=== PATIENT | female | born 1985 | race Caucasian/White ===

== ENCOUNTER 2018-05-04 18:04 | Emergency (ER) | payer OTHER ==
[2018-05-04 18:08] VITALS: BP 128/73; PULSE 94; TEMP 99.4; BMI 22.6
--- NOTE | 2018-05-04 18:26 | PDOC ---
History of Present Illness - General Chief Complaint: Respiratory Stated Complaint: CHEST PAIN Time Seen by Provider: 05/04/18 18:09 History Source: Patient Exam Limitations: No Limitations - History of Present Illness Initial Comments: 05/04/18 18:22 HISTORY OF PRESENT ILLNESS: 33-year-old woman past medical history of hypothyroidism who presents emergency Department with 1 week of fevers, dry cough and pleuritic chest pain. Patient states she's been feeling feverish for the past week but has not checked her temperature. Patient denies taking any [id number] antipyretic medication. Patient denies any shortness of breath or audible wheezing over this time. Patient reports she is beginning to experience a mildly sore throat which just started over the past 2 days. She denies any shortness of breath, dizziness, headaches, abdominal pain, nausea, vomiting. No recent travel or sick contacts. PAST MEDICAL HISTORY: hypothyroidism SURGICAL HISTORY: Denies ALLERGIES: No known drug allergies REVIEW OF SYSTEMS General/Constitutional: subjective fever. No chills. Denies weakness, weight change. HEENT: Denies change in vision. Denies ear pain or discharge. Denies sore throat. Cardiovascular: Denies chest pain or shortness of breath. Respiratory: dry nonproductive cough. No wheezing, or hemoptysis. Gastrointestinal: Denies nausea, vomiting, diarrhea or constipation. Denies rectal bleeding. Genitourinary: Denies dysuria, frequency, or change in urination. Musculoskeletal: Denies joint or muscle swelling or pain. Denies neck or back pain. Skin and breasts: Denies rash or easy bruising. Neurologic: Denies headache, vertigo, loss of consciousness, or loss of sensation. Psychiatric: Denies depression or anxiety. Endocrine: Denies increased thirst. Denies abnormal weight change. Hematologic/Lymphatic: Denies anemia, easy bleeding, or history of blood clots. Allergic/Immunologic: Denies hives or skin allergy. Denies latex allergy. PHYSICAL EXAM General Appearance: Well-appearing, appropriately dressed. No apparent distress , no intoxication. HEENT: EOMI, PERRLA, normal ENT inspection, normal voice, TMs normal, pharynx normal. No conjunctival pallor. No photophobia, scleral icterus. Neck: Supple. Trachea midline. No tenderness, rigidity, carotid bruit, stridor , lymphadenopathy, or thyromegaly. Respiratory/Chest: Lungs CTAB. No shortness of breath, chest tenderness, respiratory distress, accessory muscle use. No crackles, rales, rhonchi, stridor , wheezing, dullness Cardiovascular: RRR. S1, S2. No JVD, murmur, bradycardia, tachycardia. Vascular Pulses: Dorsalis-Pedis (R): 2+, Dorsalis-Pedis (L): 2+ Gastrointestinal/Abdominal: Normal bowel sounds. Abdomen soft, non-distended. No tenderness or rebound tenderness. No organomegaly, pulsatile mass, guarding , hernia, hepatomegaly, splenomegaly. Lymphatic: No adenopathy, tenderness. Musculoskeletal/Extremities: Normal inspection. FROM of all extremities, normal capillary refill. Pelvis Stable. No CVA tenderness. No tenderness to extremities, pedal edema, swelling, erythema or deformity. Integumentary: Appropriate color, dry, warm. No cyanosis, erythema, jaundice or rash Neurologic: television actor II-XII intact. Fully oriented, alert. Appropriate mood/affect. Motor strength 5/5. No appreciable EOM palsy, facial droop or sensory deficit. Past History - Past Medical History Allergies/Adverse Reactions: Allergies Allergy/AdvReac Type Severity Reaction Status Date / Time No Known Allergies Allergy Verified 05/04/18 18:07 Home Medications: Ambulatory Orders NK [No Known Home Medication] 05/04/18 COPD: No - Suicide/Smoking/Psychosocial Hx Smoking History: Never smoked *Physical Exam - Vital Signs Last Vital Signs Temp Pulse Resp BP Pulse Ox 99.4 F 94 H 18 128/73 99 05/04/18 18:06 05/04/18 18:06 05/04/18 18:06 05/04/18 18:06 05/04/18 18:06 Medical Decision Making - Medical Decision Making 05/04/18 18:22 A/P: 33-year-old woman with history of hypothyroidism with 1 week of fevers, cough and pleuritic chest pain Oropharynx clear without exudate No cervical lymphadenopathy present Lungs clear to auscultation bilaterally Patient's exam is consistent with viral infection I will get a chest x-ray to rule out pneumonia. 05/04/18 19:22 Chest x-rays read by me: Angles clear. Cardiac silhouette is within normal limits. No focal infiltrates or consolidations noted. Discharge home *DC/Admit/Observation/Transfer Diagnosis at time of Disposition: Chest pain, pleuritic - Discharge Dispostion Disposition: HOME Condition at time of disposition: Stable Decision to Admit order: No - Referrals - Patient Instructions Additional Instructions: Rest, drink lots of fluids: Teas, water, soups, Pedialyte Saltwater gargles Steamy showers/seem to face break up mucus Avoid contact with others until fevers and cough resolved Lots of handwashing and good hygiene Continue [id number] medications for symptomatic relief Tylenol or Motrin for fever and pain Followup with private physician in one to 2 days as needed Return to emergency department for worsened symptoms, fevers, dehydration - Post Discharge Activity
== END 2018-05-04 19:37 | disposition home or self-care (01) ==
LOC: JERFT 18:04
DX: R07.81 Pleurodynia (principal); B34.9 Viral infection, unspecified
CPT/HCPCS: 71046-TC-FY; 84703; 99281-25